=== PATIENT | male | born 1995 | race Caucasian/White ===

== ENCOUNTER 2024-08-02 18:45 | Emergency (ER) | payer BC ==
[~2024-08-02] VITALS: Ht 188 cm; Wt 85.0 kg
[2024-08-02 18:48] VITALS: O2SAT 98
[2024-08-02 19:22] VITALS: BP 124/83; PULSE 110; RESP 18; TEMP 36.7; O2SAT 98
== END 2024-08-02 20:02 | disposition home or self-care (01) ==
LOC: ER 18:45
DX: T51.8X1A Toxic effect of other alcohols, accidental (unintentional), initial encounter (principal); Y92.520 Airport as the place of occurrence of the external cause
CPT/HCPCS: 99283